=== PATIENT | female | born 1995 | race Hispanic/Latino ===

== ENCOUNTER 2025-01-20 21:15 | Emergency (ER) | payer BC ==
[~2025-01-20] VITALS: Ht 157.5 cm; Wt 104.0 kg
[2025-01-20] MEDS ORDERED: Diph, Acellular Pertussis, Tet 0.5 ML/VIAL (Tdap) SDV IM ONE (21:40)
[2025-01-20 21:57] VITALS: BP 147/88
== END 2025-01-20 21:57 | disposition home or self-care (01) | DRG 605 ==
LOC: ED 21:15
PROC: 0HQGXZZ Repair Left Hand Skin, External Approach (ICD-10-PCS; principal; 2025-01-20)
DX: S61.412A Laceration without foreign body of left hand, initial encounter (principal); W26.8XXA Contact with other sharp object(s), not elsewhere classified, initial encounter; Y93.G3 Activity, cooking and baking; Y92.000 Kitchen of unspecified non-institutional (private) residence as the place of occurrence of the external cause
CPT/HCPCS: 90715

== ENCOUNTER 2025-01-26 18:58 | Emergency (ER) | payer BC ==
[~2025-01-26] VITALS: Ht 157.5 cm; Wt 104.6 kg
[2025-01-26 19:55] VITALS: BP 119/72
== END 2025-01-26 19:55 | disposition home or self-care (01) | DRG 950 ==
LOC: ED 18:58
DX: S61.412D Laceration without foreign body of left hand, subsequent encounter (principal); X58.XXXD Exposure to other specified factors, subsequent encounter